=== PATIENT | male | born 1990 | race Caucasian/White ===

== ENCOUNTER 2017-11-25 05:42 | Day surgery (SDC) | payer OTHER ==
[2017-11-25] MEDS ORDERED: LIDOCAINE 100 MG SYRINGE (07:00)
[2017-11-25] MEDS ORDERED: BUPIVACAINE 0.5%/EPI (SDV) 30 ML INJ (07:09)
[2017-11-25] MEDS ORDERED: BUPIVACAINE 0.5% (SDV) 30 ML INJ (07:09)
[2017-11-25] MEDS ORDERED: ROPIVACAINE 0.5 % 30 ML VIAL (07:18)
[2017-11-25] MEDS ORDERED: MIDAZOLAM 1 MG/ML 2 ML INJ ×2 (07:19→07:20)
[2017-11-25] MEDS ORDERED: morphine 2 MG INJ IV (07:30)
[2017-11-25] MEDS ORDERED: PROPOFOL 20 ML (07:51)
[2017-11-25] MEDS ORDERED: HYDROmorphONE 2 MG/ML SYG (07:52)
[2017-11-25] MEDS ORDERED: FENTAnyl 50 MCG/ML VIAL (07:52)
[2017-11-25] MEDS: ROPIVACAINE 0.5 % 30 ML VIAL (08:25)
[2017-11-25] MEDS: POLYMYXIN/BACITRACIN 1L IRRIG (08:25)
[2017-11-25] MEDS ORDERED: DEXAMETHASONE 4 MG/ML 1 ML INJ (08:27)
[2017-11-25] MEDS ORDERED: CEFAZOLIN 1 GM INJ (08:27)
[2017-11-25] MEDS ORDERED: ONDANSETRON 4 MG INJ (08:27)
[2017-11-25] MEDS ORDERED: FAMOTIDINE 20 MG INJ (08:28)
[2017-11-25] MEDS ORDERED: FENTAnyl 50 MCG/ML VIAL IV ×3 (10:30)
[2017-11-25] MEDS ORDERED: HYDROmorphONE (0.2 MG/ML) 10ML SYG IV ×3 (10:30)
[2017-11-25] MEDS ORDERED: OXYCODONE/ACETAMINOPHEN (5/325) TAB PO ×2 (10:30)
[2017-11-25] MEDS ORDERED: DIPHENHYDRAMINE 50 MG INJ IV (10:30)
[2017-11-25] MEDS ORDERED: MEPERIDINE 25 MG INJ IV (10:30)
[2017-11-25] MEDS ORDERED: PROCHLORPERAZINE 10 MG INJ IV (10:30)
[2017-11-25] MEDS: NEOMYC/POLYMYX/BACIT 30 GM OINT (10:30)
[2017-11-25] MEDS: ONDANSETRON 4 MG INJ IV (12:20)
== END 2017-11-25 19:45 | disposition home or self-care (01) ==
LOC: SDS 05:42
DX: S83.512A Sprain of anterior cruciate ligament of left knee, initial encounter (principal); S83.212A Bucket-handle tear of medial meniscus, current injury, left knee, initial encounter; M94.262 Chondromalacia, left knee; E66.9 Obesity, unspecified; Z68.30 Body mass index [BMI] 30.0-30.9, adult; X58.XXXA Exposure to other specified factors, initial encounter; Y93.79 Activity, other specified sports and athletics; Y99.9 Unspecified external cause status; Y92.9 Unspecified place or not applicable
CPT/HCPCS: 29881